=== PATIENT | male | born 1970 | race Two or more races ===

== ENCOUNTER 2018-03-04 12:20 | Emergency (ER) | payer OTHER ==
[~2018-03-04] VITALS: Ht 175.3 cm; Wt 86.2 kg
[~2018-03-04 12:20] MED LIST: LIPITOR40 MG; LOSARTAN POTASS25 MG
== END 2018-03-04 12:52 | disposition home or self-care (01) ==
LOC: ER 12:20
DX: Z48.02 Encounter for removal of sutures (principal)

== ENCOUNTER → 2019-05-14 | Outpatient (CLI) | payer OTHER | END | disposition home or self-care (01) | LOC: MRI 14:15 | DX: I11.9 Hypertensive heart disease without heart failure (principal); I67.81 Acute cerebrovascular insufficiency; E78.00 Pure hypercholesterolemia, unspecified | CPT/HCPCS: 72148 ==

== ENCOUNTER 2019-12-30 22:53 | Emergency (ER) | payer OTHER ==
[~2019-12-30] VITALS: Ht 172.7 cm; Wt 85.3 kg
[2019-12-30] MEDS ORDERED: ASA325 MG (23:10)
== END 2019-12-31 00:25 | disposition home or self-care (01) ==
LOC: ER 22:53
DX: S00.211A Abrasion of right eyelid and periocular area, initial encounter (principal); W01.198A Fall on same level from slipping, tripping and stumbling with subsequent striking against other object, initial encounter; Y93.89 Activity, other specified; Y92.012 Bathroom of single-family (private) house as the place of occurrence of the external cause; Y99.8 Other external cause status

== ENCOUNTER 2020-01-05 09:12 | Emergency (ER) | payer OTHER ==
[~2020-01-05] VITALS: Ht 175.3 cm; Wt 86.2 kg
[~2020-01-05 09:12] MED LIST changes: +ASA325 MG
== END 2020-01-05 10:11 | disposition home or self-care (01) ==
LOC: ER 09:12
DX: Z48.02 Encounter for removal of sutures (principal); Z48.01 Encounter for change or removal of surgical wound dressing

== ENCOUNTER 2022-06-20 08:18 | Emergency (ER) | payer OTHER ==
[~2022-06-20] VITALS: Ht 175.3 cm; Wt 88.5 kg
== END 2022-06-20 11:21 | disposition home or self-care (01) ==
LOC: ER 08:18
DX: R00.2 Palpitations (principal); I10 Essential (primary) hypertension; E78.5 Hyperlipidemia, unspecified

== ENCOUNTER → 2023-05-20 | Emergency (ER) | payer OTHER | END | disposition left against medical advice (07) | LOC: ER 17:38 | DX: Z53.21 Procedure and treatment not carried out due to patient leaving prior to being seen by health care provider (principal) ==

== ENCOUNTER 2023-05-22 10:09 | Emergency (ER) | payer OTHER ==
[~2023-05-22] VITALS: Ht 175.3 cm; Wt 86.2 kg
== END 2023-05-22 11:41 | disposition home or self-care (01) ==
LOC: ER
DX: H61.22 Impacted cerumen, left ear (principal); I10 Essential (primary) hypertension

== ENCOUNTER 2023-06-10 11:36 | Emergency (ER) | payer OTHER ==
[~2023-06-10] VITALS: Ht 175.3 cm; Wt 86.2 kg
== END 2023-06-10 16:38 | disposition home or self-care (01) ==
LOC: ER 11:37
DX: M23.011 Cystic meniscus, anterior horn of medial meniscus, right knee (principal)

== ENCOUNTER 2024-12-17 14:21 | Outpatient (CLI) | payer OTHER | END 2024-12-17 14:23 | disposition home or self-care (01) | LOC: SONOGRAMA 14:21 | PROVIDERS: ATTEND Internal Medicine Gastroenterology | DX: R74.01 Elevation of levels of liver transaminase levels (principal) ==